=== PATIENT | male | born 1980 | race Caucasian/White ===

== ENCOUNTER 2016-12-05 23:19 | Inpatient (IN) | payer OTHER ==
[~2016-12-05] VITALS: Ht 172.7 cm; Wt 96.5 kg
[2016-12-05 23:27] VITALS: PULSE 110; RESP 18; TEMP 98.4; O2SAT 97
[2016-12-05 23:34] VITALS: BP 159/89; PULSE 108; RESP 18; O2SAT 96
[2016-12-05] MEDS ORDERED: VENL1CAP38 PO (23:44)
[2016-12-05] MEDS ORDERED: HYDR-3583 PO (23:44)
[2016-12-05] MEDS ORDERED: [UNRECOGNIZED DRUG - OTHER] (23:44)
[2016-12-05] MEDS ORDERED: XANA2TAB2 PO (23:44)
--- NOTE | 2016-12-05 23:53 | PD ---
HPI Chief Complaint: Psychiatric Symptoms Time Seen by Provider: 23:25 Travel History International Travel<30 days: No Contact w/Intl Traveler<30days: No Traveled to known affect area: No History of Present Illness HPI Patient is a 36-year-old male who presents to emergency room with police officers under Jamison act with complaints of suicidal ideations. Patient reports that he got mad at his baby mom today as she refused to let him see his child. Reports that he had a few beers and "ranted on facebook" that he was going to hurt himself. Reports that police were called to his home and patient admitted that he punched his TV today because he wanted to hurt himself. Denies hi. Denies use of drugs. 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,) Tetanus Vaccination: < 5 Years Influenza Vaccination: No Past Surgical History Tonsillectomy: Yes Other Surgery: Yes (HERNIA) Social History Alcohol Use: Yes Tobacco Use: Yes Substance Use: No Allergies-Medications (Allergen,Severity, Reaction): Coded Allergies: No Known Allergies (Unverified , 12/05/16) Review of Systems General / Constitutional: No: Fever Eyes: No: Visual changes HENT: No: Headaches Cardiovascular: No: Chest Pain or Discomfort Respiratory: No: Shortness of Breath Gastrointestinal: No: Abdominal Pain Genitourinary: No: Dysuria Musculoskeletal: No: Pain Skin: No Rash Neurologic: No: Weakness Psychiatric: Positive: Suicidal Ideations, No: Depression Endocrine: No: Polydipsia Hematologic/Lymphatic: No: Easy Bruising Physical Exam Narrative GENERAL: nad, nontoxic SKIN: Focused skin assessment warm/dry. HEAD: Atraumatic. Normocephalic. EYES: Pupils equal and round. ENT: No nasal bleeding or discharge. Mucous membranes pink and moist. NECK: Trachea midline. No JVD. CARDIOVASCULAR: Regular rate and rhythm. No murmur appreciated. RESPIRATORY: No accessory muscle use. Clear to auscultation. Breath sounds equal bilaterally. GASTROINTESTINAL: Abdomen soft, non-tender, nondistended. Hepatic and splenic margins not palpable. MUSCULOSKELETAL: No obvious deformities. No clubbing. No cyanosis. No edema. Patient with no obvious open fractures, patient with pain with range of motion to his right wrist, patient with normal range of motion to his right shoulder and right elbow, pulses intact, neurovascular intact. NEUROLOGICAL: Awake and alert. Motor grossly within normal limits. Normal speech. PSYCHIATRIC: Patient appears intoxicated, with suicidal ideations Data Data Last Documented VS Vital Signs Date Time Temp Pulse Resp B/P Pulse Ox O2 Delivery O2 Flow Rate FiO2 12/05/16 23:34 109 18 12/05/16 23:34 159/89 96 Room Air 12/05/16 23:27 98.4 Orders Complete Blood Count With Diff (12/05/16 23:34) Comprehensive Metabolic Panel (12/05/16 23:34) Psych Screen (12/05/16 23:34) Drug Screen, Random Urine (12/05/16 23:34) Alcohol (Ethanol) (12/05/16 23:34) Salicylates (Aspirin) (12/05/16 23:34) Tylenol (Acetaminophen) (12/05/16 23:34) MDM Medical Decision Making Medical Screen Exam Complete: Yes Emergency Medical Condition: Yes Interpretation(s) Vital Signs Date Time Temp Pulse Resp B/P Pulse Ox O2 Delivery O2 Flow Rate FiO2 12/05/16 23:34 109 18 12/05/16 23:34 108 18 159/89 96 Room Air 12/05/16 23:27 98.4 110 18 97 Differential Diagnosis suicidal idealations, alcohol intoxication Narrative Course 36 year old male who presents to ER with police officers under Jamison act as he made suicidal comment today after he got into a fight with the mother of his child. Patient reports that he was upset that he was not allowed to see his child today and "ranted on facebook" and punched his tv. jamison act initiated by police communications dispatcher. pt reports suicidal idealization, denies hi. xray of right shoulder, forearm and hand ordered to evaluate for fx psych screening labs ordered Grace Barron DO Dec 05, 2016 23:53
[2016-12-06] VITALS (7 sets, daily range): BP systolic 130–180; BP diastolic 65–112; PULSE 80–103; RESP 14–20; TEMP 97.7; O2SAT 97–99
[2016-12-06 00:04] LABS: BASOPHIL # 0.1 TH/MM3 (0-0.2); BASOPHIL % 1.2 % (0.0-2.0); EOSINOPHIL # 0.1 TH/MM3 (0-0.4); EOSINOPHIL % 1.4 % (0.0-4.0); HEMATOCRIT 42.2 % (39.0-51.0); LYMPH % 58.6 % (9.0-44.0); LYMPHOCYTE # 5.8 TH/MM3 (1.0-4.8); MEAN CELL VOLUME 97.9 FL (80.0-100.0); MEAN CORPUSCULAR HEMOGLOBIN 34.3 PG (27.0-34.0); MEAN CORPUSCULAR HGB CONC 35.1 % (32.0-36.0); MONO % 8.8 % (0.0-8.0); PLATELET COUNT 301 TH/MM3 (150-450); RED BLOOD COUNT 4.31 MIL/MM3 (4.50-5.90); RED CELL DISTRIBUTION WIDTH 13.3 % (11.6-17.2)
[2016-12-06 00:08] LABS: HEMO FLAGS AUTO DIFF
[2016-12-06 00:30] LABS: ACETAMINOPHEN LESS THAN 2.0 MCG/ML (10.0-30.0); ALKALINE PHOSPHATASE 122 U/L (45-117); ALT (GPT) 47 U/L (12-78); ANION GAP 13 MEQ/L (5-15); AST (GOT) 32 U/L (15-37); BICARBONATE 23.9 MEQ/L (21.0-32.0); BLOOD UREA NITROGEN 14 MG/DL (7-18); CHLORIDE 104 MEQ/L (98-107); GLOMERULAR FILTRATION RATE 86 ML/MIN (>89); POTASSIUM 3.4 MEQ/L (3.5-5.1); SODIUM (NA) 141 MEQ/L (136-145); TOTAL BILIRUBIN ADULT 0.2 MG/DL (0.2-1.0)
[2016-12-06] MEDS ORDERED: LORazepam 1 MG TAB PO ONE (00:30)
[2016-12-06] MEDS ORDERED: LAMO100 PO (00:31)
[2016-12-06 00:34] LABS: AMPHETAMINE, URINE NEG (NEG); BARBITURATES, URINE NEG (NEG); COCAINE, URINE NEG (NEG)
[2016-12-06] MEDS ORDERED: ACETAMINOPHEN/HYDROcodone 325 MG/5 MG TAB PO ONE ×2 (00:45→11:30)
[2016-12-06] MEDS ORDERED: HALOPERIDOL LACTATE 5 MG/ML AMP IM ONE (00:45)
[2016-12-06 00:57] LABS: SCAN/DIFF AUTO DIFF CONFIRMED
--- NOTE | 2016-12-06 01:34 | RADRPT ---
EXAM DATE/TIME: 12/06/2016 00:56 [facility] COMPARISON: No previous studies available for comparison. INDICATIONS : Right hand lacerations and right wrist pain from punching a television. MEDICAL HISTORY : None. SURGICAL HISTORY : None. ENCOUNTER: Initial ACUITY: 1 day PAIN SCORE: 0/10 LOCATION: Right shoulder FINDINGS: 4 views of the right shoulder demonstrate no fracture or dislocation. The acromioclavicular joint is intact. The visualized soft tissues demonstrate no abnormality. Visualized portions of the right lung are clear. No displaced rib fracture is seen. CONCLUSION: No acute right shoulder abnormality is identified. Elvis Morales MD on December 06, 2016 at 1:32 Board Certified Radiologist. This report was verified electronically.
--- NOTE | 2016-12-06 01:35 | RADRPT ---
EXAM DATE/TIME: 12/06/2016 01:06 [facility] COMPARISON: No previous studies available for comparison. INDICATIONS : Right hand lacerations and right wrist pain from punching a television. MEDICAL HISTORY : None. SURGICAL HISTORY : None. ENCOUNTER: Initial ACUITY: 1 day PAIN SCORE: 3/10 LOCATION: Right hand and wrist FINDINGS: Three views the right hand demonstrate no fracture or dislocation. Mineralization is within normal li mits and there is no significant arthropathy. No soft tissue abnormality or radiopaque foreign body i s identified. CONCLUSION: No acute right hand abnormality is identified. Elvis Morales MD on December 06, 2016 at 1:33 Board Certified Radiologist. This report was verified electronically.
--- NOTE | 2016-12-06 01:58 | PD ---
Data Data Last Documented VS Vital Signs Date Time Temp Pulse Resp B/P Pulse Ox O2 Delivery O2 Flow Rate FiO2 12/05/16 23:34 109 18 12/05/16 23:34 159/89 96 Room Air 12/05/16 23:27 98.4 Orders Complete Blood Count With Diff (12/05/16 23:34) Comprehensive Metabolic Panel (12/05/16 23:34) Psych Screen (12/05/16 23:34) Drug Screen, Random Urine (12/05/16 23:34) Alcohol (Ethanol) (12/05/16 23:34) Salicylates (Aspirin) (12/05/16 23:34) Tylenol (Acetaminophen) (12/05/16 23:34) Hand, Complete ([id number]) (12/05/16 ) Shoulder, Complete (>2vws) (12/05/16 ) Lorazepam (Ativan) (12/06/16 00:30) Haloperidol Inj (Haldol Inj) (12/06/16 00:45) Acetamin-Hydrocod 325-5 Mg ([place] 5-325 (12/06/16 00:45) Diet Regular Basic (12/06/16 Breakfast) Labs Laboratory Tests Test 12/05/16 12/06/16 22:45 00:00 White Blood Count 10.0 TH/MM3 Red Blood Count 4.31 MIL/MM3 Hemoglobin 14.8 GM/DL Hematocrit 42.2 % Mean Corpuscular Volume 97.9 FL Mean Corpuscular Hemoglobin 34.3 PG Mean Corpuscular Hemoglobin 35.1 % Concent Red Cell Distribution Width 13.3 % Platelet Count 301 TH/MM3 Mean Platelet Volume 8.7 FL Neutrophils (%) (Auto) 30.0 % Lymphocytes (%) (Auto) 58.6 % Monocytes (%) (Auto) 8.8 % Eosinophils (%) (Auto) 1.4 % Basophils (%) (Auto) 1.2 % Neutrophils # (Auto) 3.0 TH/MM3 Lymphocytes # (Auto) 5.8 TH/MM3 Monocytes # (Auto) 0.9 TH/MM3 Eosinophils # (Auto) 0.1 TH/MM3 Basophils # (Auto) 0.1 TH/MM3 CBC Comment AUTO DIFF Differential Comment AUTO DIFF CONFIRMED Sodium Level 141 MEQ/L Potassium Level 3.4 MEQ/L Chloride Level 104 MEQ/L Carbon Dioxide Level 23.9 MEQ/L Anion Gap 13 MEQ/L Blood Urea Nitrogen 14 MG/DL Creatinine 0.98 MG/DL Estimat Glomerular Filtration 86 ML/MIN Rate Random Glucose 136 MG/DL Calcium Level 8.5 MG/DL Total Bilirubin 0.2 MG/DL Aspartate Amino Transf 32 U/L (AST/SGOT) Alanine Aminotransferase 47 U/L (ALT/SGPT) Alkaline Phosphatase 122 U/L Total Protein 7.5 GM/DL Albumin 3.9 GM/DL Salicylates Level 3.1 MG/DL Acetaminophen Level LESS THAN 2.0 MCG/ML Ethyl Alcohol Level 147 MG/DL Urine Opiates Screen POS Urine Barbiturates Screen NEG Urine Amphetamines Screen NEG Urine Benzodiazepines Screen POS Urine Cocaine Screen NEG Urine Cannabinoids Screen NEG MDM Medical Record Reviewed: Yes Supervised Visit with VIVIEN: Yes Interpretation(s) Laboratory Tests Test 12/05/16 12/06/16 22:45 00:00 White Blood Count 10.0 TH/MM3 Red Blood Count 4.31 MIL/MM3 Hemoglobin 14.8 GM/DL Hematocrit 42.2 % Mean Corpuscular Volume 97.9 FL Mean Corpuscular Hemoglobin 34.3 PG Mean Corpuscular Hemoglobin 35.1 % Concent Red Cell Distribution Width 13.3 % Platelet Count 301 TH/MM3 Mean Platelet Volume 8.7 FL Neutrophils (%) (Auto) 30.0 % Lymphocytes (%) (Auto) 58.6 % Monocytes (%) (Auto) 8.8 % Eosinophils (%) (Auto) 1.4 % Basophils (%) (Auto) 1.2 % Neutrophils # (Auto) 3.0 TH/MM3 Lymphocytes # (Auto) 5.8 TH/MM3 Monocytes # (Auto) 0.9 TH/MM3 Eosinophils # (Auto) 0.1 TH/MM3 Basophils # (Auto) 0.1 TH/MM3 CBC Comment AUTO DIFF Differential Comment AUTO DIFF CONFIRMED Sodium Level 141 MEQ/L Potassium Level 3.4 MEQ/L Chloride Level 104 MEQ/L Carbon Dioxide Level 23.9 MEQ/L Anion Gap 13 MEQ/L Blood Urea Nitrogen 14 MG/DL Creatinine 0.98 MG/DL Estimat Glomerular Filtration 86 ML/MIN Rate Random Glucose 136 MG/DL Calcium Level 8.5 MG/DL Total Bilirubin 0.2 MG/DL Aspartate Amino Transf 32 U/L (AST/SGOT) Alanine Aminotransferase 47 U/L (ALT/SGPT) Alkaline Phosphatase 122 U/L Total Protein 7.5 GM/DL Albumin 3.9 GM/DL Salicylates Level 3.1 MG/DL Acetaminophen Level LESS THAN 2.0 MCG/ML Ethyl Alcohol Level 147 MG/DL Urine Opiates Screen POS Urine Barbiturates Screen NEG Urine Amphetamines Screen NEG Urine Benzodiazepines Screen POS Urine Cocaine Screen NEG Urine Cannabinoids Screen NEG Last 24 hours Impressions Shoulder X-Ray 12/05/16 0000 Signed Impressions: Service Date/Time: Tuesday, December 06, 2016 00:56 - CONCLUSION: No acute right shoulder abnormality is identified. Elvis Morales MD Hand X-Ray 12/05/16 0000 Signed Impressions: Service Date/Time: Tuesday, December 06, 2016 01:06 - CONCLUSION: No acute right hand abnormality is identified. Elvis Morales MD Differential Diagnosis MDM: High Differential diagnoses: Schizophrenia, schizoaffective disorder, bipolar, anxiety, depression, adjustment reaction, mood disorder NOS, ODD, depressive disorder NOS, dementia, dementia with agitation, psychosis NOS, substance induced mood disorder, intermittent explosive disorder, Asperger syndrome, infection,electrolyte abnormality, malingering. Narrative Course Mental health screening discussed with the patient. Psychiatric screen ordered. X-ray of the hand and shoulder are negative for bony injury. The patient is been medically cleared. This is adjustment reaction with mixed mood and conduct Diagnosis Primary Impression: adjustment reaction with mixed mood and conduct Condition: Antonio Espinosa Dec 06, 2016 01:58
[2016-12-06] MEDS ORDERED: FLUMAZENIL 0.5 MG/5 ML VIAL IV PUSH PRN (08:15)
[2016-12-06] MEDS ORDERED: LORazepam 2 MG/ML VIAL IV PUSH PRN ×4 (08:15)
[2016-12-06] MEDS: NICOTINE 21 MG/24 HR PATCH T-DERMAL SCH ×3 (08:30→12:12)
[2016-12-06] MEDS: REMOVE OLD PATCH T-DERMAL SCH (08:31)
[2016-12-06] MEDS: LORazepam 1 MG TAB PO PRN ×3 (08:55→22:32)
--- NOTE | 2016-12-06 09:40 | MB ---
cc: CHATO DAVALOS DATE OF CONSULTATION: 12/06/2016 REQUESTING PHYSICIAN: Emergency department REASON FOR CONSULTATION Jamison Act HISTORY OF PRESENT ILLNESS Mr. Armando has a reported history of depression and anxiety, and presents under a Jamison Act from [facility] alleging that the patient sent concerning text messages and punched a television saying that he would "rather punch a TV and harm himself than harm anyone else." Reviewing the electronic medical record, it appears this is the patient's first visit to [facility]. Toxicology screen was positive for opiates and benzodiazepines, both of which the patient reports are prescribed to him as well as alcohol level of 147. The patient was seen and examined. Chart reviewed. The case was discussed with the nurse in the [facility]. The nursing staff has reached out to the patient's mother whose collateral it not reassuring. She has ongoing concerns that the patient represents a risk of harm to others. On my examination today, the patient says that he "just hit the TV, so I should not hurt anyone else." He says that he has been fighting with his from whom he is . He denies any suicidal or homicidal ideation at this time. He admits to feeling somewhat depressed. No other depressive or hypomanic/manic symptoms, however. He denies any audiovisual hallucinations and I can elicit no delusional beliefs. The remainder of the psychiatric ROS is negative. PAST PSYCHIATRIC HISTORY Includes a history of depression and anxiety. He says that he lost his insurance 2 months ago and so has fallen out of outpatient psychiatric care. He reportedly previously did well with venlafaxine, Lamictal and Valium. He also was receiving opiates, that was from his psychiatrist. He was also receiving opiates, muscle relaxers, and sleep aids from his primary care doctor. He was reportedly voluntarily admitted to [facility] about a year ago. He denies any history of suicide attempt but he does have a history of felonious assault in the past by his report. FAMILY HISTORY The patient denies a family history of suicide. He does report a family history of depression and anxiety in his mother. CHEMICAL DEPENDENCY HISTORY: The patient drinks three to four beers a day. He has a history of blackouts. No history of DTs or seizures or DUIs. Denies any other substance use. Maintains that his other toxicological findings are because of prescribed medications. SOCIAL HISTORY Lives with his mother. his whom he has known for 20 years. The two have two sons together who are presently residing with the . He is applying for disability. Denies any history. History of felonious assault. Mother keeps a BB gun. No other firearms. Denies any alevism or spiritual beliefs. PAST MEDICAL HISTORY The patient reports no medical problems. REVIEW OF SYSTEMS No reported headache, vision or hearing changes, chest pain, shortness of breath, bowel or bladder issues. No other physical complaints. PHYSICAL EXAMINATION Temperature is 97.7, pulse 92, respirations 18, blood pressure 130/82, pulse oximetry 99% on room air. A physical examination was completed in the emergency room by the ER staff and the patient was medically cleared. On my examination today, the patient appears to be in no acute physical distress. No signs of withdrawal noted. No motoric abnormalities noted. LABORATORY Reviewed: CBC is unremarkable. CMP is significant for mild hypokalemia, mild hyperglycemia and mildly decreased GFR. Alkaline phosphatase is also slightly elevated at 122. Toxicology positive for opiates and benzos. Alcohol level 147 and that was late yesterday evening. The patient is clinically sober at the time of my evaluation. MENTAL STATUS EXAMINATION: The patient is in hospital gown. He is fairly well-groomed and maintaining basic hygiene. He is awake, alert and oriented x3. No evidence of delirium. No abnormal motor movements noted. Speech is within normal limits for rate, tone and volume. Language and fund of knowledge seem average. Mood is reportedly somewhat depressed and affect is blunted. Thought process linear. No loosening of associations. No evident delusions. Denies audiovisual hallucinations. Denies suicidal or homicidal ideation. Insight and judgment are unclear at present. ASSESSMENT/PLAN 1. Adjustment disorder with disturbance of emotions and conduct, F43.25 2. Rule out depressive illness. 3. Rule out alcohol use disorder. This is a 36-year-old male with psychiatric history as detailed above who presents on a Jamison Act. The patient tends to minimize his symptoms for me but collateral from the patient's mother is concerning. Given our lack of history with the patient and the fact that he is presently unmedicated secondary to running out of insurance to see his psychiatrist, I think it is the most prudent course of action to retain the patient under the Jamison Act and transfer to [facility] when a bed is available. I will provide the patient with a CIWA scale with Ativan for the management of any withdrawal. He is also requesting a nicotine patch as he smokes two packs a day and I will provide this for him. The patient will be retained in the [facility] under a Jamison Act until transferred to [facility]. The case was discussed with the RN in the [facility]. Thank you very much for this consultation. Chato Davalos DC/LEIGH ANN /8:03 AM /9:23 AM [facility]
[2016-12-06] MEDS ORDERED: VENLAFAXINE HCL XR 37.5 MG CAP PO ONE (18:00)
[2016-12-06] MEDS ORDERED: lamoTRIgine 100 MG TAB PO ONE (18:00)
[2016-12-06] MEDS ORDERED: cloNIDine HCL 0.1 MG TAB PO ONE ×2 (18:00→20:00)
[2016-12-06] MEDS ORDERED: diphenhydrAMINE HCL 50 MG CAP PO ONE (21:15)
[2016-12-06] MEDS ORDERED: IBUPROFEN 800 MG TAB PO ONE (21:15)
--- NOTE | 2016-12-06 23:42 | EKG ---
Date Performed: 12/06/2016 Time Performed: 19:35:49 PTAGE: 36 years EKG: Sinus rhythm POSSIBLE LEFT ATRIAL ENLARGEMENT BORDERLINE ECG NO PREVIOUS TRACING DOCTOR: Nadya Tang Interpretating Date/Time 12/06/2016 23:41:00
[2016-12-07 02:25] VITALS: BP 125/51; PULSE 64; RESP 16; O2SAT 99
[2016-12-07] MEDS: REMOVE OLD PATCH T-DERMAL SCH (04:30)
[2016-12-07 06:28] VITALS: BP 151/93; PULSE 87; RESP 18; O2SAT 99
[2016-12-07] MEDS: LORazepam 1 MG TAB PO PRN ×3 (10:56→21:18)
[2016-12-07] MEDS ORDERED: lamoTRIgine 100 MG TAB PO ONE (11:15)
[2016-12-07 15:07] VITALS: BP 206/84; PULSE 95; O2SAT 97
[2016-12-07] MEDS: NICOTINE 21 MG/24 HR PATCH T-DERMAL SCH (15:58)
[2016-12-07] MEDS ORDERED: BENZTROPINE MESYLATE 1 MG TAB PO PRN (17:15)
[2016-12-07] MEDS ORDERED: ALUMINUM/MAGNESIUM/SIMETH 30 ML CUP PO PRN (17:15)
[2016-12-07] MEDS ORDERED: MAGNESIUM HYDROXIDE SUSP 30 ML CUP PO PRN (17:15)
[2016-12-07] MEDS ORDERED: ACETAMINOPHEN 325 MG TAB PO PRN (17:15)
[2016-12-07] MEDS ORDERED: diphenhydrAMINE HCL 50 MG CAP PO PRN (17:15)
[2016-12-07] MEDS ORDERED: BENZTROPINE MESYLATE 2 MG/2 ML VIAL IM PRN (17:15)
[2016-12-07] MEDS: hydrOXYzine HCL 50 MG TAB PO PRN (19:15)
[2016-12-07] MEDS: cloNIDine HCL 0.1 MG TAB PO PRN (19:15)
[2016-12-07] MEDS: LORazepam 2 MG TAB PO PRN (19:15)
[2016-12-07 19:17] VITALS: BP 173/110; PULSE 95; RESP 19; O2SAT 98
[2016-12-07 20:36] VITALS: BP 164/110; PULSE 103; RESP 18; O2SAT 98
[2016-12-07] MEDS ORDERED: lamoTRIgine 100 MG TAB PO SCH (21:00)
[2016-12-07 21:40] VITALS: BP 159/103; PULSE 92; RESP 20; TEMP 97.4; O2SAT 97
[2016-12-07] MEDS: lamoTRIgine 100 MG TAB PO SCH (22:08)
[2016-12-08] MEDS: cloNIDine HCL 0.1 MG TAB PO PRN ×2 (05:57→11:21)
[2016-12-08] MEDS: hydrOXYzine HCL 50 MG TAB PO PRN ×2 (06:01→16:48)
[2016-12-08 06:21] VITALS: BP 133/106; PULSE 90; RESP 17; TEMP 98.1; O2SAT 97
[2016-12-08 07:43] LABS: ANION GAP 8 MEQ/L (5-15); BICARBONATE 25.8 MEQ/L (21.0-32.0); BLOOD UREA NITROGEN 10 MG/DL (7-18); CHLORIDE 106 MEQ/L (98-107); GLOMERULAR FILTRATION RATE 114 ML/MIN (>89); POTASSIUM 3.1 MEQ/L (3.5-5.1); SODIUM (NA) 140 MEQ/L (136-145)
[2016-12-08 07:45] LABS: HDL CHOLESTEROL 45.6 MG/DL (40.0-60.0); LDL CHOLESTEROL 107 MG/DL (0-99)
[2016-12-08] MEDS ORDERED: POTASSIUM CHLORIDE 10 MEQ CONTROLLED RELEASE TAB PO ONE (08:15)
[2016-12-08] MEDS ORDERED: POTASSIUM CHLORIDE 20 MEQ CONTROLLED RELEASE TAB PO ONE (08:15)
[2016-12-08] MEDS ORDERED: VENLAFAXINE HCL XR 37.5 MG CAP PO SCH ×2 (09:00)
[2016-12-08] MEDS: lamoTRIgine 100 MG TAB PO SCH (09:00)
[2016-12-08] MEDS ORDERED: cloNIDine HCL 0.1 MG TAB PO SCH (09:00)
[2016-12-08] MEDS ORDERED: REMOVE OLD PATCH T-DERMAL SCH (09:00)
[2016-12-08] MEDS: NICOTINE 21 MG/24 HR PATCH T-DERMAL SCH (09:04)
[2016-12-08 09:15] LABS: HEMOGLOBIN A1a 0.7 %; HEMOGLOBIN A1b 0.7 %; HEMOGLOBIN Ao 85.9 %; HEMOGLOBIN F 1.3 %; HEMOGLOBIN LA1C 1.9 %; HEMOGLOBIN P3 3.4 %
[2016-12-08] MEDS: LORazepam 2 MG TAB PO PRN (11:21)
[2016-12-08 11:24] VITALS: BP 188/108; PULSE 110
[2016-12-08] MEDS ORDERED: MAGNESIUM HYDROXIDE SUSP 30 ML CUP PO PRN (12:15)
[2016-12-08] MEDS ORDERED: ALUMINUM/MAGNESIUM/SIMETH 30 ML CUP PO PRN (12:15)
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
[2016-12-08] MEDS: ACETAMINOPHEN 325 MG TAB PO PRN ×4 (12:39→16:52)
[2016-12-08] MEDS ORDERED: CLON.1 PO (13:47)
--- NOTE | 2016-12-08 16:53 | PD.CONS ---
HPI Service [facility] Consult Requested By Psychiatry team, Dr. De Los Santos Reason for Consult Medical management HTN Primary Care Physician Non-Staff Diagnoses: History of Present Illness Patient is a 36 year old white male with primary medical history of untreated hypertension who came in to the hospital under [place] act by the police officers with complaints of suicidal ideations. As per report, he got mad at the mother of his child today as she refused to let him see his child. Reports that he had a few beers and "ranted on facebook" that he was going to hurt himself. Reports that police were called to his home and patient admitted that he punched his TV today because he wanted to hurt himself. He is now admitted to inpatient psychiatry unit for further evaluation. Consulted for medical management of hypertension. Patient seen today. Reports that he had hypertension previously but he never took his medications. Unable to tell what medications he took. He is about to be discharged home today by primary team. Discuss plan start patient on HTN medication. Discussed possible increase in BP secondary to withdrawal symptoms from alcohol use. He is to follow-up with his PCP for continues control. Otherwise, denies pain and discomfort. Denies SOB/ dyspnea. Denies chest pain , palpitations, headaches, dizziness. Denies fevers, chills, n/v/d. Review of Systems Except as stated in HPI: all other systems reviewed are Neg Past Family Social History Allergies: Coded Allergies: No Known Allergies (Unverified , 12/05/16) Past Medical History HTN Psychiatric history schizophrenia, narcissistic rage? Past Surgical History Tonsillectomy Hernia repair Reported Medications None Active Ordered Medications Current Medications Medications (Trade) Dose Ordered Sig/Brittnee Route Start Time Stop Time Status Last Admin (Romazicon Inj) 0.2 mg Q1M PRN IV PUSH 12/06/16 08:15 (Ativan) 1 mg Q4H PRN PO 12/06/16 08:15 12/07/16 21:18 (Ativan Inj) 1 mg Q4H PRN IV PUSH 12/06/16 08:15 (Ativan) 2 mg Q2H PRN PO 12/06/16 08:15 12/08/16 11:21 (Ativan Inj) 2 mg Q2H PRN IV PUSH 12/06/16 08:15 12/06/16 20:00 (Ativan Inj) 2 mg Q1H PRN IV PUSH 12/06/16 08:15 (Ativan Inj) 2 mg Q15M PRN IV PUSH 12/06/16 08:15 (Habitrol 21 Mg Patch.24 Hr) 1 patch DAILY T-DERMAL 12/07/16 16:00 12/08/16 09:04 Miscellaneous Information 1 DAILY T-DERMAL 12/08/16 09:00 12/08/16 09:00 (LaMICtal) 100 mg Q12HR PO 12/07/16 21:00 12/08/16 09:00 (Effexor Xr) 37.5 mg DAILY PO 12/08/16 09:00 12/08/16 09:01 (Benadryl) 50 mg HS PRN PO 12/07/16 17:15 12/08/16 00:06 (Atarax) 50 mg Q6H PRN PO 12/07/16 17:15 12/08/16 06:01 (Cogentin) 1 mg Q12H PRN PO 12/07/16 17:15 (Cogentin Inj) 1 mg Q12H PRN IM 12/07/16 17:15 (Catapres) 0.1 mg Q8HR PRN PO 12/07/16 17:15 12/08/16 11:21 (Catapres) 0.1 mg BID PO 12/08/16 09:00 12/08/16 09:03 (Tylenol) 650 mg Q4H PRN PO 12/08/16 12:15 12/08/16 12:39 (Milk Of Magnesia Liq) 30 ml DAILY PRN PO 12/08/16 12:15 (Mag-Al Plus Susp Liq) 30 ml Q6H PRN PO 12/08/16 12:15 Family History Family history of hypertension Social History Alcohol use 2 packs per day tobacco use No recent illicit drug use but history of heroine use. Physical Exam Vital Signs Vital Signs Date Time Temp Pulse Resp B/P Pulse Ox O2 Delivery O2 Flow Rate FiO2 12/08/16 11:24 110 188/108 12/08/16 06:21 98.1 90 17 133/106 97 12/07/16 21:40 97.4 92 20 159/103 97 12/07/16 20:36 103 18 164/110 98 Room Air 12/07/16 19:17 95 19 173/110 98 Room Air Physical Exam GENERAL: This is a well-nourished, well-developed patient, in no apparent distress. SKIN: No rashes, ecchymoses or lesions. Cool and dry. HEAD: Normocephalic. EYES: Pupils equal round and reactive. No scleral icterus. No injection or drainage. ENT: Nose without bleeding. Throat without erythema. Uvula midline. Airway patent. NECK: Trachea midline. No JVD or lymphadenopathy. Supple. CARDIOVASCULAR: Regular rate and rhythm without murmurs, gallops, or rubs. RESPIRATORY: Clear to auscultation. Breath sounds equal bilaterally. No wheezes , rales, or rhonchi. GASTROINTESTINAL: Abdomen soft, non-tender, nondistended. Bowel sounds active 4. MUSCULOSKELETAL: Extremities without clubbing, cyanosis, or edema. NEUROLOGICAL: Awake and alert. Motor and sensory grossly within normal limits. Normal speech. Laboratory Laboratory Tests Test 12/08/16 12/08/16 06:42 08:00 Sodium Level 140 Potassium Level 3.1 Chloride Level 106 Carbon Dioxide Level 25.8 Anion Gap 8 Blood Urea Nitrogen 10 Creatinine 0.77 Estimat Glomerular Filtration 114 Rate Random Glucose 100 Hemoglobin A1c 5.1 Calcium Level 8.7 Triglycerides Level 295 Cholesterol Level 212 LDL Cholesterol 107 HDL Cholesterol 45.6 Cholesterol/HDL Ratio 4.64 Magnesium Level 2.1 Result Diagram: 12/05/16 2245 12/08/16 0642 Imaging Last Impressions Shoulder X-Ray 12/05/16 0000 Signed Impressions: Service Date/Time: Tuesday, December 06, 2016 00:56 - CONCLUSION: No acute right shoulder abnormality is identified. Elvis Morales MD Hand X-Ray 12/05/16 0000 Signed Impressions: Service Date/Time: Tuesday, December 06, 2016 01:06 - CONCLUSION: No acute right hand abnormality is identified. Elvis Morales MD Assessment and Plan Problem List: (1) adjustment disorder Status: Acute (2) Alcohol abuse ICD Code: F10.10 Status: Acute (3) HTN (hypertension) ICD Code: I10 Status: Acute Assessment and Plan Patient is a 36 year old white male with primary medical history of untreated hypertension who came in to the hospital under [place] act by the police officers with complaints of suicidal ideations. As per report, he got mad at the mother of his child today as she refused to let him see his child. Reports that he had a few beers and "ranted on facebook" that he was going to hurt himself. Reports that police were called to his home and patient admitted that he punched his TV today because he wanted to hurt himself. He is now admitted to inpatient psychiatry unit for further evaluation. Consulted for medical management of hypertension. Adjustment disorder - managed by psychiatry team HTN - clonidine 0.1 mg twice a day - Follow up with PCP as an outpatient for HTN management - HTN likely alcohol withdrawal - Discuss with patient risks and benefits of taking clonidine. Discuss to not take himself off of clonidine unless seen by doctor. Agrees with plan. Verbalized understanding. Alcohol abuse - counseled Tobacco abuse - counseled Primary team plan for discharge home for this patient. Medically for discharge as well as patient follows up with PCP for continued management of his hypertension and probably wean him off of clonidine use. Written by Royal Ray, acting as scribe for Dr. Cleary on 12/08/16 at 16:53. All or portions of this note were transcribed by scribe Royal Ray,. I, Dr. Burak Cleary personally performed the history, physical exam, and medical decision making; and confirmed the accuracy of the information in the transcribed note. Authenticated by Dr. Burak Cleary on 12/08/16 at 20:53. Code Status Full code Discussed Condition With Patient, nursing Royal Jewell Dec 08, 2016 16:53 Burak Cleary MD Dec 08, 2016 20:53
[2016-12-08 16:59] VITALS: BP 165/98; PULSE 100; RESP 16
== END 2016-12-08 17:55 | disposition home or self-care (01) | DRG 882 ==
LOC: NEPA 23:19 → NEDA 12-07 17:13 → H260 12-07 21:39
PROVIDERS: ADMIT Psychiatry & Neurology Psychiatry; ATTEND Psychiatry & Neurology Psychiatry
DX: F43.25 Adjustment disorder with mixed disturbance of emotions and conduct (principal); I10 Essential (primary) hypertension; F10.10 Alcohol abuse, uncomplicated; Y90.6 Blood alcohol level of 120-199 mg/100 ml; F17.210 Nicotine dependence, cigarettes, uncomplicated
CPT/HCPCS: 73030; 73130; 80048; 80053; 80061; 80307; 83036; 83735; 85025; 93005; 96372; J1630; J2060; Q0163